=== PATIENT | male | born 1995 | race African-American/Black ===

== ENCOUNTER → 2016-11-10 | Outpatient (CLI) | payer OTHER ==
--- NOTE | 2016-11-10 11:12 | REP ---
LEFT ANKLE SERIES: Four views. HISTORY: Pain in the left ankle. FINDINGS: There is an oval-shaped well-circumscribed radiolucent lesion in the left distal tibia measuring 17 x 9 x 11 mm. This has a sclerotic margin and is most likely a benign cyst or non-ossifying fibroma. No other bony lesion is seen. Ankle mortise is intact. No fracture is observed. There is a small accessory ossicle adjacent to the distal fibula. Overall mineralization pattern is normal. Exam is otherwise unremarkable. 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 Small accessory ossicle adjacent to the distal fibula. Otherwise negative. Signed by Kelton Irwin MD 11/10/2016 02:00 P
== END ==
LOC: M RAD 09:21
PROVIDERS: ATTEND Surgery
DX: M89.8X7 Other specified disorders of bone, ankle and foot (principal)